=== PATIENT | female | born 1965 | race Caucasian/White ===

== ENCOUNTER → 2016-05-24 | Outpatient (CLI) | payer OTHER ==
--- NOTE | 2016-05-24 11:30 | DI ---
MRI BRAIN SCAN WITHOUT AND WITH IV CONTRAST, 05/24/2016 9:02 AM: Clinical History: Multiple sclerosis. Previous Exam: None at this facility. Sequences: Axial and sagittal T1 pre contrast and axial and coronal post contrast; axial T2 and FLAIR . Diffusion weighted images with ADC mapping are also performed. 15 mL of OptiMARK (0.5 mmol per mL) was injected IV. The 4th, 3rd, and lateral ventricles are of normal size, shape, position, and contour for this patien t's age. There are no focal areas of abnormally increased or decreased signal intensity. There are no abnormally enhancing lesions. The FLAIR sequences show no hyperintensities, particularly in the danelle us callosum. Diffusion weighted imaging with ADC mapping is normal. There are no extracerebral mantel s or shift of the midline structures. The paranasal sinuses are normal. Readin. Normal pre-and postcontrast MRI brain scan. 2. Diffusion weighted imaging with ADC mapping is normal.
== END ==
LOC: MRI 08:54
DX: G35 Multiple sclerosis (principal)
CPT/HCPCS: 70553; A9579

== ENCOUNTER → 2016-12-10 | Outpatient (CLI) | payer OTHER ==
--- NOTE | 2016-12-13 10:34 | DI ---
History: Pelvic pain Comparison: None Findings: There is periarticular osteophyte formation in the right hip. There is joint space narrowing of the right hip. There are sclerotic changes in the weightbearing portions of the right femoral head and ad jacent acetabulum. The left hip is unremarkable in appearance. Pubic symphysis and SI joints are unremarkable No acute injury Impression Advanced degenerative changes right hip
== END ==
LOC: RAD 13:54
PROVIDERS: ATTEND Anesthesiology
DX: M25.551 Pain in right hip (principal); M16.11 Unilateral primary osteoarthritis, right hip
CPT/HCPCS: 73521